=== PATIENT | female | born 1940 | race Caucasian/White ===

== ENCOUNTER → 2018-12-13 | Outpatient (CLI) | payer OTHER ==
[~2018-12-13] MED LIST: ERGO500027 PO; LACT1CAP25 PO; MAGN400C PO
--- NOTE | 2018-12-14 00:49 | PAIN ---
DATE OF SERVICE: 12/13/2018 INITIAL CONSULTATION FOR PAIN CLINIC CHIEF COMPLAINT: Left shoulder and left upper extremity pain. HISTORY OF PRESENT ILLNESS: This is a 78-year-old female with history of pain in the base of the neck, left shoulder, left upper back radiating to the left arm, mostly in the posterior aspect of the triceps, posterior deltoid and posterior forearm into the fourth and fifth fingers on the left side with numbness and tingling. The patient reports it started on 11/10/2018. She was playing tennis and noticed the pain in her left arm and base of the neck. The patient reports it has gotten slightly better since then, but still significantly painful. The patient described it as constant, sharp, stabbing with tingling and numbness in the left arm, radiating to the hand, aching, cold sensation as well as burning, awakens her from sleep at night at least once or twice every night she believes on her left side especially. It does not affect her bowel or bladder control or ability to walk, but she has decreased her recreational activities significantly because of the pain. The patient has tried hydrocodone as well as cyclobenzaprine, both of which help, but only to a moderate extent. The patient has not had any current chiropractic treatments. She is doing exercise on her own, stretching and strengthening as well as some physical therapy exercises that she learned many years ago, but not doing them on her own as well. The patient had no other modalities of treatment at this time. She reports that the stretching and strengthening exercises are helping to some extent, but only very temporarily. The patient also had some massage therapy done on the neck and shoulder, which has only been temporary for about 1 day improvement as well. The patient reports no loss of motor function, again significant fatigability with repetitive motions in the left arm. She has been dropping items with the left hand. Reports some difficulty with tactile stimulation, especially the fourth and fifth fingers on the left side in holding items and doing repetitive motions as well as raising her arm up over her head on her left side, this causes some pain as well. Also, putting her arm into the sleeve of a jacket or shirt can exacerbate the pain also. The patient rates her disability rate from 0-10, 10 being the worst as 6 with family and home responsibilities, 9 with recreation, 7 with social activity and occupation, 5 with sexual behavior and self-care and 1 with life support activities. The patient did have an MRI scan of the cervical spine showing diffuse cervical spondylosis and spinal stenosis, moderate disk osteophyte complex, T1-T2, greater on the left, additional asymmetric ridging with some left lateral recess and neural foraminal narrowing seen at C7-T1 with degenerative disk disease as well. Central canal mildly narrowed and left-sided neural foraminal narrowing. PAST MEDICAL HISTORY: Significant for arthritis, sinus congestion, previous skin cancers. PREVIOUS SURGERY: Include ganglion cyst. No other surgeries. CURRENT MEDICATIONS: Include hydrocodone, cyclobenzaprine, gabapentin, levothyroxine. ALLERGIES: The patient has no known drug allergies. FAMILY HISTORY: Significant for diabetes and cancers. SOCIAL HISTORY: The patient does not smoke, drinks about 1 glass of alcohol twice a week on average. Does not smoke. Does not use any illegal, illicit or recreational drugs. She is , lives with her spouse, is currently retired and lives locally in [place], [place]. REVIEW OF SYSTEMS: The patient's review of systems is positive for those items mentioned in history of present illness. All systems reviewed and otherwise negative. It is complete, full and well documented on the patient's chart. PHYSICAL EXAMINATION: VITAL SIGNS: Today, the patient's blood pressure is 150/79, pulse 67, respirations 18, temperature 98.2 degrees Fahrenheit, height 5 feet 6 inches, weight 154 pounds. GENERAL: The patient is awake, alert, oriented, appropriate, very pleasant demeanor. HEENT: Normocephalic, atraumatic. Extraocular movements are intact and symmetrical. Oral cavity: Mucous membranes are moist and pink. Dentition is intact. NECK: Shows anterior throat supple without palpable lymphadenopathy noted. Swallow reflex symmetrical. CHEST: Shows normal on inspection. Breath sounds clear to auscultation bilaterally. HEART: Shows S1, S2 clear. No murmurs auscultated. ABDOMEN: Soft, nontender, nondistended. No palpable organomegaly is noted. No rebound or guarding demonstrated. MUSCULOSKELETAL: Back shows spine grossly in the midline. Normal-appearing cervical lordotic curvature, thoracic kyphotic curvature and lumbar lordotic curvature. Cervical paraspinous muscle shows symmetrical on inspection, with palpation shows some moderate tenderness diffusely bilaterally but only diffusely without radiation. The patient has good rotational motion of cervical spine, both laterally greater than 45 degrees, closer to 90 degrees right and left without exacerbation of pain. Full extension, full forward flexion performed without difficulty as well. The patient's upper extremities show deep tendon reflexes at 2+ in the biceps, triceps tendons. 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 Bicep and tricep flexion is 5/5 and equal. Peripheral pulses are 2+ radial distribution. No peripheral edema is noted. Upper extremities are warm and dry to touch, equal in color and appearance. Shoulder shrug is strong and intact without loss of strength on resistance as is abduction of the shoulder to 90 degrees without loss of strength with some minor pain in the posterior deltoid and posterior trapezius radiating in the left upper extremity with resistance only, but again no loss of strength with resistance. Shoulder shrug strong and intact with some minor pain as well in the base on the left neck and shoulder. SKIN: Warm and dry, good turgor. No edema. No sores, rashes or bruising. IMPRESSION: This is a 78-year-old female with: 1. Approximate 1-month history of pain, neck, left upper extremity in a radicular fashion following a C6-C7 and C7 T1 dermatomal distribution into the left hand. 2. MRI scan of cervical spine as noted. 3. History of arthritis. PLAN: Options were discussed with the patient and the patient's spouse who accompanied her to the visit today and we will preauthorize the patient for cervical epidural steroid injection as she is doing some strengthening and stretching exercises on her own. Still has significant radicular pain in the C6-C7, C7-T1 dermatomal distribution on the left. We discussed the procedure using description as well as anatomical models to describe the procedure. We will wait for preauthorization with patient's insurance provider. In the meantime, try Medrol Dosepak. The patient given instruction as well as side effects to be aware of with the medication and will follow up in approximately one week. We will plan on cervical epidural steroid injection at that time. CHANTELLE LEAVITT MD DR: GABY/rupal JOB#: [id number] / [id number] Jennyfer Arredondo MD
== END | disposition home or self-care (01) ==
LOC: PNCL 10:20
PROVIDERS: ATTEND Anesthesiology
DX: M79.602 Pain in left arm (principal); M25.512 Pain in left shoulder; M54.2 Cervicalgia; M19.90 Unspecified osteoarthritis, unspecified site; Z85.828 Personal history of other malignant neoplasm of skin; Z83.3 Family history of diabetes mellitus; Z80.9 Family history of malignant neoplasm, unspecified
CPT/HCPCS: G0463

== ENCOUNTER → 2019-03-22 | Outpatient (CLI) | payer OTHER ==
--- NOTE | 2019-03-22 13:02 | PAIN ---
DATE OF SERVICE: 03/22/2019 PROGRESS NOTE FOR PAIN CLINIC DIAGNOSES: Cervical radiculopathy with cervical spinal stenosis and cervical degenerative disk disease. HISTORY OF PRESENT ILLNESS: The patient is a 78-year-old female who returns for followup status post cervical epidural steroid injection x 1. The patient reports about 75% improvement initially, now about 50% improvement after the first 2 weeks as the pain is beginning to return to a moderate extent but still significantly improved. The patient reports increasing in her activity with greater ease and comfort, has been playing tennis with greater ability and strength. The patient reports that it does not awaken her from sleep. She is very pleased with her progress thus far. She rates her pain as a 1 on a scale of 10 at its worst, average and at its least and is a 1 today. Reports it is a dull aching pain in the base of the neck radiating to left upper extremity, mostly in the posterior deltoid, triceps and anterior forearm, into the thumb and first and second fingers on the left side. The patient reports still some tingling in the hand but very minimal. The patient reports it is beginning to return; however, she can feel that each day being a little bit more noticeable, again still above about 50% improvement overall in the first 2 weeks and almost 75% improved. The patient's who accompanies her to visit today notes a marked change in her activity and ability to function with the left arm as well with household duties and the patient has been traveling easier and driving easier also. The patient reports no new motor or sensory deficits and no new changes. Still some difficulty with gripping with the left hand as she does have some muscle atrophy in the hand itself. PHYSICAL EXAMINATION: VITAL SIGNS: The patient's blood pressure is 141/73, pulse 59, respirations are 16 and temperature is 98.0 degrees Fahrenheit. Height is 5 feet 6 inches and weight 154 pounds. GENERAL: The patient is awake, alert, oriented, appropriate and very pleasant demeanor. Again, accompanied by her spouse. HEENT: Head shows normocephalic and atraumatic. Extraocular movements are intact and symmetrical. Oral cavity, mucous membranes are moist and pink. Dentition is intact. NECK: Shows anterior throat supple without palpable lymphadenopathy noted. Swallow reflex symmetrical. CHEST: Shows normal with inspection. Breath sounds are clear to auscultation bilaterally. HEART: Shows S1 and S2 clear. No murmurs auscultated. ABDOMEN: Soft, nontender and nondistended. No palpable organomegaly is noted. BACK: Shows spine grossly in the midline, normal-appearing cervical lordotic curvature, thoracic kyphotic curvature. Cervical paraspinous muscle shows symmetrical on inspection. On palpation shows some moderate tenderness diffusely bilaterally but only in the middle and lower distribution of the paraspinous muscles, slightly more on the left than the right into the superior medial trapezius as well but without radiation. The patient has good rotational motion of the cervical spine, both laterally as well as extension and flexion without significant increase in pain. EXTREMITIES: Upper extremities show deep tendon reflexes at 2+ in the biceps and triceps tendons. Motor exam is approximately 4 on a scale 5 on the left with chronometer tester strength bicep and tricep flexion and 5/5 on the right. Peripheral pulses are 2+ radial distribution. No peripheral edema is noted bilaterally. Options were discussed with the patient. The patient's old chart was reviewed as well as her current medication regimen updated. Current review of systems updated today as well. We will plan on a preauthorization for a second cervical epidural steroid injection with significant radicular pain still on the C6-C7 dermatomal distribution on the left side but significantly improved after the first 2 weeks of 75% improvement, now about 50% improvement overall, still with some loss in the chronometer tester strength on the left side. We will plan for return for a translaminar approach, C6-C7 level for C6-C7 left-sided dermatomal radiculopathy. CHANTELLE LEAVITT MD DR: GABY/rupal JOB#: [id number] / [id number]
== END | disposition home or self-care (01) ==
LOC: PNCL 10:08
PROVIDERS: ATTEND Anesthesiology
DX: M50.10 Cervical disc disorder with radiculopathy, unspecified cervical region (principal); M48.02 Spinal stenosis, cervical region; M62.542 Muscle wasting and atrophy, not elsewhere classified, left hand
CPT/HCPCS: G0463

== ENCOUNTER → 2019-04-04 | Outpatient (CLI) | payer OTHER ==
[~2019-04-04] MED LIST changes: +IOHEXOL 180 MG/ML 10 ML VIAL. ONE; +methylPREDNISolone ACETATE 40 MG/ML VIAL. ONE; +methylPREDNISolone ACETATE 80 MG/ML VIAL. ONE
--- NOTE | 2019-04-04 11:56 | PAIN ---
DATE OF SERVICE: 04/04/2019 PROGRESS NOTE FOR PAIN CLINIC DIAGNOSES: Cervical radiculopathy with cervical spinal stenosis and cervical degenerative disk disease. HISTORY OF PRESENT ILLNESS: The patient is a 78-year-old female who returns for followup status post cervical epidural steroid injection x 1 of about 75% improvement with pain returning in her left upper extremity. She had been preauthorized for second injection and we would like to proceed with that today. The patient reports still some numbness and tingling in the hand and arm, especially not specifically pain but its worst, as a 1 on a scale of 10 on average and its least is a 1 as well to 0. The patient reports no new motor or sensory deficit, sleeping well at night, does not awaken her from sleep. She has been playing tennis with greater ease and comfort, still with some significant discomfort in the left arm, however, especially the hand with some numbness and tingling with activity. The patient reports no new motor or sensory deficits or other complaints. PHYSICAL EXAMINATION: VITAL SIGNS: The patient's blood pressure is 126/65, pulse 69, respirations 18 and temperature 98.0 degrees Fahrenheit. Height is 5 feet 6 inches and weight 153 pounds. GENERAL: The patient is awake, alert, oriented, appropriate and very pleasant demeanor. HEENT: Head shows normocephalic and atraumatic. Extraocular movements are intact and symmetrical. Oral cavity: Mucous membranes moist and pink. Dentition is intact. NECK: Shows anterior throat supple without palpable lymphadenopathy noted. Swallow reflex symmetrical. CHEST: Shows normal with inspection. Breath sounds clear to auscultation bilaterally. HEART: Shows S1 and S2 clear. No murmurs auscultated. ABDOMEN: Soft, nontender and nondistended. BACK: Shows spine grossly in the midline, normal-appearing cervical lordotic curvature and thoracic kyphotic curvature. Cervical paraspinous muscle shows symmetrical on inspection with palpation shows some moderate tenderness diffusely without specific radiation but with moderate tenderness with rotational motion, especially extension but not with forward flexion. EXTREMITIES: The patient's upper extremities show deep tendon reflex is 2+ at the biceps and triceps tendons. 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 Peripheral pulses are 2+ radial distribution. No peripheral edema is noted bilaterally. Options were discussed with the patient. The patient's old chart was reviewed as well as her current medication regimen updated. Current review of systems updated today as well and we will proceed with a second in the series of cervical epidural steroid injection today with fluoroscopic guidance. Risks were again discussed including, but not limited to bleeding, infection, possibility of epidural hematoma, subsequent neurologic compromise, dural puncture, headaches, spinal cord and/or nerve damage, side effects of steroid medication and poor results regarding pain control. The patient understands and wished to proceed. The patient will return to the clinic in approximately 2 weeks for followup, was counseled as to return appointment, activity level and side effects to be aware of. DIAGNOSES: Cervical radiculopathy with cervical spinal stenosis and cervical degenerative disk disease. PROCEDURE: Cervical epidural steroid injection, translaminar approach, C6-C7 level using C-arm fluoroscopic guidance under sterile prep and drape using local anesthetic. MEDICATION INJECTED: A total of 120 mg Depo-Medrol plus 5 mL of preservative-free normal saline and 2 mL of contrast. CONDITION AT DISCHARGE: Stable. The patient tolerated the procedure well and had no complications. CHANTELLE LEAVITT MD DR: GABY/rupal JOB#: [id number] / [id number]
== END ==
LOC: PNCL 09:11
PROVIDERS: ATTEND Anesthesiology
DX: M50.123 Cervical disc disorder at C6-C7 level with radiculopathy (principal); M48.02 Spinal stenosis, cervical region
CPT/HCPCS: 62321; J1030; J1040; Q9965

== ENCOUNTER → 2019-05-02 | Outpatient (CLI) | payer OTHER ==
[~2019-05-02] MED LIST changes: -IOHEXOL 180 MG/ML 10 ML VIAL. ONE; -methylPREDNISolone ACETATE 40 MG/ML VIAL. ONE; -methylPREDNISolone ACETATE 80 MG/ML VIAL. ONE
--- NOTE | 2019-05-02 22:12 | PAIN ---
DATE OF SERVICE: 05/02/2019 PROGRESS NOTE FOR PAIN CLINIC DIAGNOSES: Cervical radiculopathy with cervical spinal stenosis and cervical degenerative disk disease. HISTORY OF PRESENT ILLNESS: The patient is a 78-year-old female who returns for followup status post cervical epidural steroid injection x 2. The patient reports about 65% improvement after the last injection and is very pleased with her progress. Still some pain in the left arm, which is beginning to return, but only very slightly. The patient reports it is 1 on a scale of 10 at its worst, 0 at its average and 0 at its least and 0 today, but occasionally with increased activity, playing tennis using her left arm with repetitive motions or driving a car with her left hand on the steering wheel can increase the pain. The patient reports it does not awaken her from sleep at night. She has been increasing her work and household activities as well as recreational activities and some weakness still persistent in the left hand, which is her main complaint. The patient reports no new motor or sensory deficits, no new changes. PHYSICAL EXAMINATION: VITAL SIGNS: The patient's blood pressure is 151/82, pulse 55, respirations are 18, temperature is 98.1 degrees Fahrenheit, height is 5 feet 6 inches, and weight is 155 pounds. GENERAL: The patient is awake, alert, oriented, appropriate, very pleasant demeanor. The patient is accompanied by her spouse. HEENT: Normocephalic, atraumatic. Extraocular movements are intact and symmetrical. Oral cavity: Mucous membranes moist and pink. Dentition is intact. NECK: Shows anterior throat supple without palpable lymphadenopathy noted. Swallow reflex is symmetrical. CHEST: Shows normal with inspection. Breath sounds are clear bilaterally. HEART: Shows S1, S2 clear. ABDOMEN: Soft, nontender, nondistended. BACK: Shows good rotational motion of cervical spine, both laterally as well as extension and flexion without significant increase in pain, past 45 degrees, right and left lateral as well as full extension and full forward flexion. The patient's cervical musculature shows symmetrical on inspection and palpation, has some moderate tenderness diffusely in the inferior aspect of the cervical paraspinous musculature, but is symmetrical without evidence of atrophy or hypertrophy. No tenderness over the spinous processes. The patient shows normal appearing thoracic kyphosis and lumbar lordotic curvature. EXTREMITIES: Upper extremities show deep tendon reflexes 2+ in the biceps and triceps tendons. 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 Peripheral pulses are 2+ in the radial distribution bilaterally and symmetrical. No peripheral edema is noted. Options were discussed with the patient. The patient's old chart was reviewed as her current medication regimen updated. Current review of systems updated today as well and we will preauthorize the patient for a third in the series of cervical epidural steroid injection. The patient is doing fairly well after the last injection. The pain is still returning in the radicular pattern in C6-C7 dermatomal distribution on the left, some weakness in the left hand as noted. We will have the patient continue the stretching and strengthening exercises. She is staying very active with her left upper extremity as well. I will continue to encourage this as tolerated, will return to clinic for a translaminar approach at C6-C7 level at the cervical epidural steroid injection once approved. CHANTELLE LEAVITT MD DR: GABY/rupal JOB#: [id number] / [id number]
== END | disposition home or self-care (01) ==
LOC: PNCL 09:46
PROVIDERS: ATTEND Anesthesiology
DX: M48.02 Spinal stenosis, cervical region (principal); M50.10 Cervical disc disorder with radiculopathy, unspecified cervical region
CPT/HCPCS: G0463